=== PATIENT | male | born 1935 | race Caucasian/White ===

== ENCOUNTER 2020-01-01 15:14 | Emergency (ER) | payer MEDICARE, BC ==
--- NOTE | 2020-01-01 15:49 | EDM.PDOC ---
ED HPI GENERAL MEDICAL PROBLEM - General Chief Complaint: Skin Complaint Stated Complaint: FELL, SKINNED ARM Time Seen by Provider: 01/01/20 15:30 Source of Information: Reports: Patient History Limitations: Reports: No Limitations - History of Present Illness INITIAL COMMENTS - FREE TEXT/NARRATIVE: Patient presents to ER with a skin tear to his right upper arm. He fell while going up the stairs of his camper as he was trying to reach the latch. Noted the injury to his left upper arm, also skinned up his right knee. Minimal bleeding to site of injury. Denies any head trauma. Able to ambulate per his norm with his cane. Has some limitations with range of motion with his left shoulder but states chronic in nature. Good range of motion without pain to his right elbow. Unknown last tetanus. Is on Coumadin so felt that the wound should be evaluated. Onset: Today, Sudden Duration: Minutes: Location: Reports: Upper Extremity, Right, Lower Extremity, Left Quality: Reports: Ache Severity: Mild Associated Symptoms: Reports: No Other Symptoms Right Arm Pain Score (Numeric/FACES): 1 Past Medical History Cardiovascular History: Reports: Afib, High Cholesterol, Hypertension Neurological History: Reports: CVA (See clinic chart for PMH, meds as patient poor historian in regards to this.) Social & Family History - Tobacco Use Smoking Status *Q: Unknown Ever Smoked ED ROS GENERAL - Review of Systems Review Of Systems: See Below Constitutional: Reports: Weakness (chronic) HEENT: Denies: Ear Pain, Sinus Problem, Throat Pain Respiratory: Denies: Shortness of Breath, Cough Cardiovascular: Denies: Chest Pain, Lightheadedness Endocrine: Reports: Fatigue GI/Abdominal: Denies: Abdominal Pain, Nausea, Vomiting : Reports: No Symptoms Musculoskeletal: Reports: Arm Pain, Joint Pain Skin: Reports: Wound Neurological: Reports: Weakness ED EXAM, SKIN/RASH Exam: See Below Exam Limited By: No Limitations General Appearance: Alert, WD/WN, No Apparent Distress Eye Exam: Bilateral Eye: PERRL Ears: Normal External Exam, Normal TMs Nose: Normal Inspection, Normal Mucosa, No Blood Throat/Mouth: Normal Inspection, Normal Oropharynx Head: Normocephalic Neck: Normal Inspection, Supple, Non-Tender Respiratory/Chest: Lungs Clear Cardiovascular: Irregularly Irregular GI/Abdominal: Normal Bowel Sounds, Soft, Non-Tender Neurological: Alert, Oriented Skin: Other (has irregular 5 cm skin tear to right elbow, superficial in nature. Has small abrasion to left hagan.) ED SKIN PROCEDURES - Laceration/Wound Repair Right Elbow Appearance: Superficial Skin Prep: Saline Exploration/Debridement/Repair: Wound Explored Closed with: Steri-Strips Lac/Wound length In cm: 5 Sterile Dressing Applied: Provider Tetanus Status Addressed: Yes Complications: No Course - Vital Signs Last Recorded V/S: Last Vital Signs Temp 98.1 F 01/01/20 15:27 Pulse 70 01/01/20 15:27 Resp 18 01/01/20 15:27 BP 108/57 L 01/01/20 15:27 Pulse Ox 95 01/01/20 15:27 Departure - Departure Time of Disposition: 15:52 Disposition: Home, Self-Care 01 Condition: Good Clinical Impression: Skin tear of elbow without complication, Abrasion hip/leg - Discharge Information *PRESCRIPTION DRUG MONITORING PROGRAM REVIEWED*: No *COPY OF PRESCRIPTION DRUG MONITORING REPORT IN PATIENT RIA: No Instructions: Skin Tear, [id number] Referrals: PCP,None [Primary Care Provider] - Additional Instructions: 1. Keep bandage on for 24 hours, may change at that time 2. Keep wound clean and dry 3. Allow steri strips to fall off, try to avoid getting wet for next 5 days 4. Call your health care provider/clinic tomorrow to determine last tetanus shot given, will need if has not been done in last 10 years 5. Tylenol for discomfort 6. Follow up or return with any concern or questions. Sepsis Event Note - Evaluation Sepsis Screening Result: No Definite Risk - Focused Exam Vital Signs: Vital Signs Temp Pulse Resp BP Pulse Ox 01/01/20 15:27 98.1 F 70 18 108/57 L 95 Date Exam was Performed: 01/01/20 Time Exam was Performed: 15:43
== END 2020-01-01 16:02 | disposition home or self-care (01) ==
LOC: VM.ED 15:14
DX: S51.011A Laceration without foreign body of right elbow, initial encounter (principal); S80.812A Abrasion, left lower leg, initial encounter; I48.91 Unspecified atrial fibrillation; I10 Essential (primary) hypertension; Z86.73 Personal history of transient ischemic attack (TIA), and cerebral infarction without residual deficits; W26.8XXA Contact with other sharp object(s), not elsewhere classified, initial encounter
CPT/HCPCS: 99282; 99283-GF

== ENCOUNTER 2022-03-25 15:47 | Emergency (ER) | payer MEDICARE, BC ==
[2022-03-25] MEDS ORDERED: Diphtheria,Pertussis(Acell),Tetanus Vaccine 0.5 ML Syringe IM ONE (17:32)
== END 2022-03-25 17:51 | disposition home or self-care (01) ==
LOC: VM.ED 15:47
DX: S51.002A Unspecified open wound of left elbow, initial encounter (principal); I25.2 Old myocardial infarction; Z88.0 Allergy status to penicillin; Z86.73 Personal history of transient ischemic attack (TIA), and cerebral infarction without residual deficits; Z79.01 Long term (current) use of anticoagulants; Z88.5 Allergy status to narcotic agent; Z23 Encounter for immunization; Z95.810 Presence of automatic (implantable) cardiac defibrillator; W19.XXXA Unspecified fall, initial encounter
CPT/HCPCS: 73070-LT; 90471; 90715; 99283-25